=== PATIENT | female | born 1990 | race Caucasian/White ===

== ENCOUNTER 2020-12-29 13:55 | Emergency (ER) | payer MEDICAID ==
[~2020-12-29] VITALS: Ht 162.6 cm; Wt 100.0 kg
[2020-12-29 16:08] VITALS: BP 136/83
== END 2020-12-29 16:27 | disposition home or self-care (01) ==
LOC: EMS 13:55
DX: S50.11XA Contusion of right forearm, initial encounter (principal); S90.01XA Contusion of right ankle, initial encounter; M79.89 Other specified soft tissue disorders; F17.210 Nicotine dependence, cigarettes, uncomplicated; V03.99XA Pedestrian with other conveyance injured in collision with car, pick-up truck or van, unspecified whether traffic or nontraffic accident, initial encounter; Y93.89 Activity, other specified; Y92.89 Other specified places as the place of occurrence of the external cause; Y99.8 Other external cause status
CPT/HCPCS: 29515; 93926; 93971; 99284; 99285; 73030-TC; 73090-TC; 73590-TC; 73610-TC; 73630-TC; Z7502